=== PATIENT | female | born 1975 | race Caucasian/White ===

== ENCOUNTER 2022-06-01 07:38 | Day surgery (SDC) | payer MEDICAID ==
[~2022-06-01] VITALS: Ht 162.6 cm; Wt 78.5 kg
[2022-06-01] MEDS ORDERED: MEPERIDINE HCL/PF 25 MG/ML DISP.SYRIN ONE (07:45)
[2022-06-01] MEDS ORDERED: MIDAZOLAM HCL 5 MG/5 ML VIAL ONE ×2 (07:46→10:12)
[2022-06-01 08:41] LABS: HCG,QUAL RESULT NEGATIVE (NEGATIVE)
[2022-06-01 13:43] VITALS: BP_SYST 123
== END 2022-06-01 11:35 | disposition home or self-care (01) ==
LOC: SMU 07:38 → SDS 07:38
PROVIDERS: ATTEND Internal Medicine
DX: R19.4 Change in bowel habit (principal); K57.30 Diverticulosis of large intestine without perforation or abscess without bleeding; K64.8 Other hemorrhoids; K29.50 Unspecified chronic gastritis without bleeding; K21.9 Gastro-esophageal reflux disease without esophagitis; E11.40 Type 2 diabetes mellitus with diabetic neuropathy, unspecified; I10 Essential (primary) hypertension; M19.90 Unspecified osteoarthritis, unspecified site; Z20.822 Contact with and (suspected) exposure to COVID-19; Z79.4 Long term (current) use of insulin; Z86.73 Personal history of transient ischemic attack (TIA), and cerebral infarction without residual deficits
CPT/HCPCS: 45380; 43239; 87426; 82962; 84703; 36415; 88305; 88312; 88313; 99152; 99153; G0378; J2250; J2175